=== PATIENT | female | born 1965 | race Caucasian/White ===

== ENCOUNTER → 2018-01-20 | Outpatient (CLI) | payer OTHER ==
[~2018-01-20] MED LIST: KEFLEX500 M1 PO; LEVOTHYROXINE100 MC1 PO; MAGOX 400400 MG PO; MILK OF MA2400 MG/10 PO; MOBIC15 MG PO; PROZAC 20 MG20 M1 PO; VITAMIN B-12500 MCG PO
--- NOTE | 2018-01-29 23:32 | ONC ---
[place] [address] RADIATION ONCOLOGY NOTE Name: CIELOLEIDY RENARD Room: [facility].#: [id number] Admission: 01/20/18 Attend Phys: Tony Nicole MD Discharge: Date of : 63 Report #: [id number] THIS REPORT FOR: //name// CC: Allie Mercedes MD DATE OF SERVICE: 01/20/2018 REFERRING PHYSICIANS: Include Allie Olvera MD; Susie Álvarez MD; Ed Henry DO. [facility] phone is [phone]. PRIMARY SITE AND HISTOPATHOLOGY: The patient received radiation therapy as part of breast conservation therapy for a stage IA right breast cancer. The patient finished radiation therapy on 04/29/2017. INTERVAL NOTE: The patient denied having any nipple discharge from the right breast. She denied having any nipple discharge from the left breast. She denied having any suspicious palpable masses involving the left breast. She denied having any suspicious palpable masses involving the right breast. She denied having any upper extremity edema. MEDICATIONS: fluoxetine, levothyroxine, atorvastatin, magnesium, anastrozole. SOCIAL HISTORY: The patient is a customer services coordinator. She is . Cigarettes: She quit smoking in 08/2013. She smoked about 1 to 1-1/2 packs per day for about 30 years. REVIEW OF SYSTEMS: RESPIRATORY: Breathing was baseline. She was not short of breath. MUSCULOSKELETAL: She had good range of motion in her upper extremities. PHYSICAL EXAMINATION: With my nurse, Marixa Pascual, present: VITAL SIGNS: The patient weighed 189 pounds on 01/20/2018 and 190.2 pounds on 08/26/2017. On 01/20/2018, blood pressure was 101/82, pulse 66, respirations 18, oxygen saturation was 96% on room air. LYMPH NODES: She had no palpable cervical, supraclavicular, or axillary lymphadenopathy. BREASTS: The right breast had no suspicious palpable masses. The left breast had no suspicious palpable masses. ABDOMEN: Not tender. Spleen was not palpable [place] [address] RADIATION ONCOLOGY NOTE Name: LEIDY BUCK Room: [facility]#: [id number] Admission: 01/20/18 Attend Phys: Tony Nicole MD Discharge: Date of : 63 Report #: [id number] margin. LABORATORY DATA: Medical oncologist, Dr. Álvarez, had a CA 27-29 drawn on 01/12/2018 and the value was 14.4. RADIOLOGIC DATA: The patient had a bilateral mammogram on 10/12/2017, which showed no findings to suggest malignancy. ASSESSMENT AND PLAN: 1. History of right breast cancer- There is no evidence of breast cancer at this time. The patient is taking anastrozole and that is managed by her medical oncologist, Dr. Álvarez. She is scheduled to see Dr. Álvarez on 07/27/2018. She is scheduled to see Dr. Álvarez's nurse practitioner on 04/21/2018. [facility]. She has a little bit of skin edema in the inferior portion of the breast. A requisition was written for a bilateral mammogram in 09/2018. The patient was offered a follow up appointment with me in about 1 year. 2. Hypothyroidism- The patient takes levothyroxine and that is managed by her referring physicians. 3. Hyperlipidemia- The patient takes atorvastatin and that is managed by her referring physicians. Thank you for allowing me to participate in the care of this patient. <ELECTRONICALLY SIGNED> By: Tony Nicole MD 01/29/18 2332 1031 [id number] Nicole MD /nt
== END ==
LOC: M.RTH 01:38
DX: E03.9 Hypothyroidism, unspecified (principal); E78.5 Hyperlipidemia, unspecified; Z85.3 Personal history of malignant neoplasm of breast

== ENCOUNTER 2018-05-05 09:16 | Emergency (ER) | payer OTHER ==
[~2018-05-05] VITALS: Ht 162.6 cm; Wt 85.3 kg
[~2018-05-05 09:16] MED LIST changes: -KEFLEX500 M1 PO; -LEVOTHYROXINE100 MC1 PO; -MAGOX 400400 MG PO; -MILK OF MA2400 MG/10 PO; -MOBIC15 MG PO; -VITAMIN B-12500 MCG PO
[2018-05-05] MEDS ORDERED: VITAMIN B-12500 MCG PO (09:24)
[2018-05-05] MEDS ORDERED: MILK OF MA2400 MG/10 PO (09:24)
[2018-05-05] MEDS ORDERED: MOBIC15 MG PO (09:24)
[2018-05-05] MEDS ORDERED: LEVOTHYROXINE100 MC1 PO (09:24)
[2018-05-05] MEDS ORDERED: MAGOX 400400 MG PO (09:25)
[2018-05-05 10:09] LABS: URINE BILIRUBIN NEGATIVE (Negative); URINE BLOOD TRACE (Negative); URINE CLARITY CLEAR; URINE COLOR YELLOW; URINE GLUCOSE-RANDOM NEGATIVE (Negative); URINE KETONES NEGATIVE (Negative); URINE LEUKOCYTES-REFLEX 1+ (Negative); URINE PROTEIN NEGATIVE (Negative); URINE UROBILINOGEN 0.2 E.U./dl (0.2-1.0)
[2018-05-05 10:12] LABS: URINE NITRITE-REFLEX POSITIVE (Negative)
[2018-05-05 10:14] LABS: ABSOLUTE EOSINOPHILS 0.1 thou/uL (0.0-0.7); ABSOLUTE LYMPHOCYTES 1.3 thou/uL (0.8-5.3); ABSOLUTE MONOCYTES 0.3 thou/uL (0.0-1.2); ABSOLUTE NEUTROPHILS 2.5 thou/uL (1.6-8.1); BASOPHILS 1.1 %; EOSINOPHILS 1.6 %; HEMATOCRIT 38.7 % (37.0-47.0); HEMOGLOBIN 13.2 gm/dL (12.0-15.0); LYMPHOCYTES 31.6 %; MCH 31.4 pg (26.0-34.0); MCV 92.1 fL (80.0-100.0); MONOCYTES 7.6 %; MPV 8.7 fl. (7.2-11.1); NUCLEATED RBCS 0 /100WBC; PLATELET COUNT* 149 thou/uL (150-400); POLYS 58.1 %; WBC 4.2 thou/uL (4.0-11.0)
[2018-05-05 10:15] LABS: BACTERIA-REFLEX >30 Many /HPF (None Seen); CASTS None Seen /LPF (None Seen); CRYSTALS None Seen /LPF (None Seen); MUCUS None Seen strn/LPF (None Seen); SQUAMOUS 4-10 Moderate /LPF (0-3); URINE RBC 0-2 Rare /HPF (0-2); URINE WBC-REFLEX 6-15 Few /HPF (0-5)
[2018-05-05 10:20] LABS: CALCIUM 8.9 mg/dL (8.5-10.1); CREATININE 0.7 mg/dL (0.6-1.3); POTASSIUM 4.1 mmol/L (3.5-5.1)
[2018-05-05 10:25] LABS: ALBUMIN 3.8 g/dL (3.4-5.0); TOTAL BILIRUBIN 0.4 mg/dL (<0.1-1.0); TOTAL PROTEIN 7.1 g/dL (6.4-8.2)
[2018-05-05] MEDS ORDERED: KEFLEX500 M1 PO (11:38)
[2018-05-05 11:48] VITALS: BP 126/85
--- NOTE | 2018-05-05 15:17 | EKG ---
[place] [address] ELECTROCARDIOGRAM REPORT Name: LEIDY BUCK [id number] Admission: 05/05/18 Attend Phys: Discharge: 05/05/18 Date of : 63 Report #: [id number] THIS REPORT FOR: //name// [facility] ED Test Date: 2018-05-05 Test Time: 09:21:14 Pat Name: LEIDY BUCK Department: Room: Gender: F Statistical Reporting Analyst: Richard SANTOS : 1965 Requested By: Sarah Spangler Order Number: [id number] MD: Jung Zuniga Measurements Intervals [place] Rate: 80 P: 56 DC: 181 QRS: 63 QRSD: 96 T: 31 QT: 385 QTc: 445 Interpretive Statements Sinus rhythm Atrial premature complex No previous ECG available for comparison Electronically Signed On 05-05-2018 15:17:08 CDT by Jung Zuniga [email or web address] <ELECTRONICALLY SIGNED> By: Jung Zuniga MD, [facility] 05/05/18 1517 0921 0 Jung Zuniga MD, FACC /EPI
== END 2018-05-05 11:49 | disposition home or self-care (01) ==
LOC: M.ERS 09:16
PROVIDERS: Personal Emergency Response Attendant
DX: R55 Syncope and collapse (principal); E78.00 Pure hypercholesterolemia, unspecified; Z88.1 Allergy status to other antibiotic agents

== ENCOUNTER → 2019-01-18 | Outpatient (CLI) | payer OTHER ==
[~2019-01-18] MED LIST changes: +KEFLEX500 M1 PO; +LEVOTHYROXINE100 MC1 PO; +MAGOX 400400 MG PO; +MILK OF MA2400 MG/10 PO; +MOBIC15 MG PO; +VITAMIN B-12500 MCG PO
== END ==
LOC: M.RAD 15:00
DX: Z08 Encounter for follow-up examination after completed treatment for malignant neoplasm (principal); R92.1 Mammographic calcification found on diagnostic imaging of breast; Z85.3 Personal history of malignant neoplasm of breast; Z90.11 Acquired absence of right breast and nipple

== ENCOUNTER → 2019-01-19 | Outpatient (CLI) | payer OTHER ==
--- NOTE | ~2019-01-19 | ONC ---
[place] [address] RADIATION ONCOLOGY NOTE Name: CIELOLEIDY RENARD Room: [facility]..#: [id number] Admission: 01/19/19 Attend Phys: Tony Nicole MD Discharge: Date of : 63 Report #: [id number] THIS REPORT FOR: //name// CC: Tony Henry DATE OF SERVICE: 01/19/2019 REFERRING PHYSICIANS: Allie Olvera M.D., Ed Sales DO and Susie Álvarez M.D. [facility] phone is [phone]. PRIMARY SITE AND HISTOPATHOLOGY: The patient received radiation therapy as part of breast conservation therapy for stage 1A right breast cancer. The patient finished radiation therapy on 04/29/2017. INTERVAL NOTE: The patient denied having any nipple discharge from the right breast. She denied having any nipple discharge from the left breast. She denied having any suspicious palpable masses involving the left breast. She denied having any suspicious palpable masses involving the right breast. She denied having any upper extremity edema. MEDICATIONS: Levothyroxine, anastrozole, rosuvastatin, bupropion, vitamin D, magnesium Super B. 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 Cigarettes, she quit smoking around 2012. She smoked about 1 to 1-1/2 packs per day for about 30 years. REVIEW OF SYSTEMS: RESPIRATORY: Breathing was baseline. She was not short of breath. MUSCULOSKELETAL: She had good range of motion in upper extremities. PHYSICAL EXAMINATION: With my nurse, Marixa Pascual, present: VITAL SIGNS: The patient weighed 196.8 pounds on 01/19/2019, 189 pounds on 01/20/2018 and on 01/19/2019 blood pressure is 113/68, pulse 78, respirations 16, oxygen saturation was 94%. LYMPH NODES: The patient had no palpable cervical, supraclavicular or axillary lymphadenopathy. BREASTS: The right breast had no suspicious palpable masses. Left breast had no suspicious palpable masses. ABDOMEN: Nontender. Spleen was not palpable. Liver was at the costal margin. RADIOLOGIC DATA: The patient had a bilateral mammogram at [facility] on 01/18/2019 which revealed benign findings and [place] [address] RADIATION ONCOLOGY NOTE Name: LEIDY BUCK Room: [facility]#: [id number] Admission: 01/19/19 Attend Phys: Tony Nicole MD Discharge: Date of : 63 Report #: [id number] mammography was recommended. ASSESSMENT: 1. History of breast cancer. There is no evidence of breast cancer at this time. The patient is taking anastrozole and that is managed by her medical oncologist, Dr. Álvarez. A bilateral mammogram was ordered to be done around 12/2019 or 01/2020. The patient was asked to schedule a followup appointment to see me afterwards. 2. Hypothyroidism. The patient takes levothyroxine and that is managed by referring physicians. 3. Hyperlipidemia. The patient takes atorvastatin and that is managed by her referring physicians. 4. History of cigarette smoking, the patient will be 54 years of age in 07/2019, so a screening chest CT without contrast will be ordered to be done around the time she turns 54. She will be asked to follow up with me after her mammogram in 2019. Thank you for allowing me to participate in the care of this patient. By: 1150 [id number] Nicole MD /serenity
== END ==
LOC: M.RTH 05:03
DX: Z08 Encounter for follow-up examination after completed treatment for malignant neoplasm (principal); E03.9 Hypothyroidism, unspecified; E78.5 Hyperlipidemia, unspecified; Z92.3 Personal history of irradiation; Z87.891 Personal history of nicotine dependence; Z79.899 Other long term (current) drug therapy; Z85.3 Personal history of malignant neoplasm of breast

== ENCOUNTER → 2020-06-12 | Outpatient (CLI) | payer OTHER | LOC: M.RAD 13:33 | PROVIDERS: ATTEND General Practice | DX: Z12.31 Encounter for screening mammogram for malignant neoplasm of breast (principal) ==

== ENCOUNTER → 2020-07-03 | Outpatient (CLI) | payer OTHER | LOC: M.RAD 06-26 10:32 | PROVIDERS: ATTEND Internal Medicine Hematology & Oncology | DX: Z13.820 Encounter for screening for osteoporosis (principal); N64.89 Other specified disorders of breast; E28.39 Other primary ovarian failure; Z98.890 Other specified postprocedural states; Z79.811 Long term (current) use of aromatase inhibitors; Z85.3 Personal history of malignant neoplasm of breast ==

== ENCOUNTER 2020-10-20 11:00 | Emergency (ER) | payer OTHER ==
[~2020-10-20] VITALS: Ht 162.6 cm; Wt 86.2 kg
[2020-10-20] MEDS ORDERED: BUPROPION XL300 MG (11:22)
[2020-10-20] MEDS ORDERED: EZETIMIBE10 MG PO (11:22)
[2020-10-20 11:52] LABS: ABSOLUTE EOSINOPHILS 0.1 thou/uL (0.0-0.7); ABSOLUTE LYMPHOCYTES 1.7 thou/uL (0.8-5.3); ABSOLUTE MONOCYTES 0.4 thou/uL (0.0-1.2); ABSOLUTE NEUTROPHILS 3.9 thou/uL (1.6-8.1); BASOPHILS 0.8 %; EOSINOPHILS 1.1 %; HEMATOCRIT 37.2 % (37.0-47.0); HEMOGLOBIN 12.7 gm/dL (12.0-15.0); LYMPHOCYTES 28.1 %; MCHC 34.2 g/dL (28.0-37.0); MCV 90.5 fL (80.0-100.0); MONOCYTES 6.4 %; MPV 7.7 fl. (7.2-11.1); NUCLEATED RBCS 0 /100WBC; PLATELET COUNT* 178 thou/uL (150-400); POLYS 63.6 %; RBC 4.11 mil/uL (4.20-5.00); RDW-CV 13.2 % (10.5-14.5); WBC 6.1 thou/uL (4.0-11.0)
[2020-10-20 12:05] LABS: CALCIUM 8.3 mg/dL (8.5-10.1); CREATININE 0.7 mg/dL (0.6-1.3); POTASSIUM 3.7 mmol/L (3.5-5.1)
[2020-10-20 12:09] LABS: ALBUMIN 3.4 g/dL (3.4-5.0); MAGNESIUM 2.2 mg/dL (1.8-2.4); TOTAL BILIRUBIN 0.2 mg/dL (<0.1-1.0); TOTAL PROTEIN 6.5 g/dL (6.4-8.2)
[2020-10-20 12:55] VITALS: BP 117/63
--- NOTE | 2020-10-21 16:06 | EKG ---
[place] [address] ELECTROCARDIOGRAM REPORT Name: CIELOLEIDY Room: [facility]#: [id number] Admission: 10/20/20 Attend Phys: Discharge: 10/20/20 Date of : 63 Date of Service: 10/20/20 1112 Report #: [id number] THIS REPORT FOR: //name// [facility] ED Test Date: 2020-10-20 Test Time: 11:12:20 Pat Name: LEIDY BUCK Department: Room: Gender: Planting Material Remover: [place] : 1965 Requested By: Feliciano Kumar Order Number: [id number] MD: Fortunato Cain Measurements Intervals [place] Rate: 81 P: 78 [place]: 172 QRS: 72 QRSD: 91 T: 36 QT: 393 QTc: 457 Interpretive Statements Sinus rhythm Supraventricular bigeminy Compared to ECG 05/05/2018 09:21:14 No significant changes Electronically Signed On 10-21-2020 16:06:21 PATTERN MAKER PROGRAMER by Fortunato Cain [email or web address] <ELECTRONICALLY SIGNED> By: Fortunato Cain MD, [facility] 10/21/20 1606 1112 111 Fortunato Cain MD, [facility] /EPI
== END 2020-10-20 12:58 | disposition home or self-care (01) ==
LOC: M.ERS 11:00
PROVIDERS: Emergency Medicine Emergency Medical Services
DX: R00.2 Palpitations (principal); F17.210 Nicotine dependence, cigarettes, uncomplicated; Z79.899 Other long term (current) drug therapy; Z88.1 Allergy status to other antibiotic agents; Z88.2 Allergy status to sulfonamides